=== PATIENT | female | born 2000 | race Caucasian/White ===

== ENCOUNTER 2021-06-30 12:41 | Day surgery (SDC) | payer OTHER ==
[2021-06-30 13:22] VITALS: BMI 21.1
[2021-06-30] MEDS ORDERED: Ondansetron ODT 4 MG TAB PO PRN (14:07)
== END 2021-06-30 14:15 | disposition home or self-care (01) ==
LOC: CSHLD/OP 12:41
PROVIDERS: ATTEND Obstetrics & Gynecology
DX: O99.891 Other specified diseases and conditions complicating pregnancy (principal); R11.0 Nausea; O24.410 Gestational diabetes mellitus in pregnancy, diet controlled; O99.343 Other mental disorders complicating pregnancy, third trimester; F41.9 Anxiety disorder, unspecified; F32.A Depression, unspecified; Z3A.36 36 weeks gestation of pregnancy

== ENCOUNTER 2021-07-17 08:52 | Outpatient (CLI) | payer MEDICAID ==
[2021-07-17 22:24] LABS: SARS-CoV-2 PCR by NAA Not Detected (NotDetected)
== END 2021-07-17 08:53 | disposition home or self-care (01) ==
LOC: CSHLAB 08:52
PROVIDERS: ATTEND Student in an Organized Health Care Education/Training Program
DX: Z20.822 Contact with and (suspected) exposure to COVID-19 (principal)
CPT/HCPCS: U0003; U0005

== ENCOUNTER 2021-08-06 19:17 | Emergency (ER) | payer MEDICAID, OTHER ==
[2021-08-06] MEDS ORDERED: Ibuprofen 200 MG TAB ONE (19:46)
[2021-08-06] MEDS ORDERED: Acetaminophen 500 MG TAB ONE (19:46)
== END 2021-08-06 20:14 | disposition home or self-care (01) ==
LOC: CSHERS 19:17
DX: R50.9 Fever, unspecified (principal); R09.81 Nasal congestion
CPT/HCPCS: 99283